=== PATIENT | male | born 2000 | race Hispanic/Latino ===

== ENCOUNTER 2021-09-22 01:12 | Emergency (ER) | payer SELFPAY ==
[2021-09-22 01:24] VITALS: BP 136/83
== END 2021-09-22 01:24 | disposition home or self-care (01) ==
LOC: FSED 01:15
DX: S60.451A Superficial foreign body of left index finger, initial encounter (principal); W45.8XXA Other foreign body or object entering through skin, initial encounter
CPT/HCPCS: 99282